=== PATIENT | male | born 1980 | race Caucasian/White ===

== ENCOUNTER → 2019-07-26 | Outpatient (CLI) | payer OTHER, BC ==
[~2019-07-26] MED LIST: ALBU90OI INH; Alph-E-Mixed400 UNIT PO; IBUP400 PO; LOSA50 PO; PHILLIPS' COLO1 EACH PO; Vitamin D400 UNI1 PO
== END | disposition home or self-care (01) ==
LOC: LAB SHORT 11:09 → PLD 11:09
DX: D22.39 Melanocytic nevi of other parts of face (principal)
CPT/HCPCS: 88305

== ENCOUNTER 2020-07-07 08:32 | Day surgery (SDC) | payer OTHER, BC ==
[~2020-07-07] VITALS: Ht 180.3 cm; Wt 121.4 kg
[~2020-07-07 08:32] MED LIST changes: +IMODIUM A-D2 M1
--- NOTE | 2020-07-07 08:59 | NUR ---
07/07/20 0859 Consuelo Strong 1ST I.V. ATTEMPT IN RIGHT HAND 2ND I.V. ATTEMPT IN RIGHT FOREARM
== END 2020-07-07 10:39 | disposition home or self-care (01) ==
LOC: ORSCSDS 08:32
PROVIDERS: Internal Medicine Gastroenterology
PROC: 0DBE8ZX Excision of Large Intestine, Via Natural or Artificial Opening Endoscopic, Diagnostic (ICD-10-PCS; principal; 2020-07-07 09:45)
PROC: 0DBN8ZX Excision of Sigmoid Colon, Via Natural or Artificial Opening Endoscopic, Diagnostic (ICD-10-PCS; principal; 2020-07-07 09:45)
DX: Z12.11 Encounter for screening for malignant neoplasm of colon (principal); Z86.010 Personal history of colon polyps; R19.7 Diarrhea, unspecified; Z80.0 Family history of malignant neoplasm of digestive organs; D12.5 Benign neoplasm of sigmoid colon; I10 Essential (primary) hypertension; E78.5 Hyperlipidemia, unspecified; Z79.899 Other long term (current) drug therapy
CPT/HCPCS: 88305; J2704; J7120

== ENCOUNTER → 2024-02-06 | Outpatient (CLI) | payer OTHER ==
[2024-02-09 09:40] LABS: CORTISOL,URINE FREE - PER 24H 102.2 ug/d (<=60.0); CREATININE,URINE - PER 24H 2755 mg/d (1000-2500); CREATININE,URINE - PER VOLUME 145 mg/dL; HOURS COLLECTED 24 hr; TOTAL VOLUME 1900 mL
== END ==
LOC: LAB SHORT 06:43 → LAB 06:43
PROVIDERS: Internal Medicine Endocrinology, Diabetes & Metabolism
DX: E27.8 Other specified disorders of adrenal gland (principal); E66.01 Morbid (severe) obesity due to excess calories; K75.81 Nonalcoholic steatohepatitis (NASH)
CPT/HCPCS: 81050; 82530

== ENCOUNTER → 2024-02-11 | Outpatient (CLI) | payer OTHER | LOC: LAB SHORT 12:30 → LAB 12:30 | DX: R09.81 Nasal congestion (principal) | CPT/HCPCS: 87081 ==

== ENCOUNTER 2024-08-07 06:32 | Day surgery (SDC) | payer OTHER ==
[~2024-08-07] VITALS: Ht 180.3 cm; Wt 128.9 kg
[2024-08-07] MEDS ORDERED: ATOR10 (06:51)
[2024-08-07] MEDS ORDERED: LACTOBACILLUS (06:52)
[2024-08-07] MEDS ORDERED: DIOVAN HCT 1601 EAC1 (06:56)
[2024-08-07] MEDS ORDERED: Lactated Ringer's 1,000 ML IV ONE ×2 (07:20→07:47)
[2024-08-07] MEDS ORDERED: propofoL 50 ML IV ONE (07:28)
[2024-08-07] MEDS ORDERED: Midazolam HCL 1 MG/ML 5MLVIAL ONE (07:28)
[2024-08-07 09:07] VITALS: BP 116/63
--- NOTE | 2024-08-07 09:07 | NUR ---
08/07/24 0907 Jessenia Hernandez Pt. verbalizes feeling a little lightheaded when moving around but steady on his feet.
== END 2024-08-07 08:55 | disposition home or self-care (01) ==
LOC: ORSCSDS 06:32
PROVIDERS: Internal Medicine Gastroenterology
PROC: 0DBH8ZX Excision of Cecum, Via Natural or Artificial Opening Endoscopic, Diagnostic (ICD-10-PCS; principal; 2024-08-07 08:00)
DX: Z12.11 Encounter for screening for malignant neoplasm of colon (principal); Z86.0100 Personal history of colon polyps, unspecified; Z80.0 Family history of malignant neoplasm of digestive organs; Z86.0102 Personal history of hyperplastic colon polyps; D12.0 Benign neoplasm of cecum; D37.4 Neoplasm of uncertain behavior of colon; I10 Essential (primary) hypertension; J45.909 Unspecified asthma, uncomplicated; E66.9 Obesity, unspecified; Z68.39 Body mass index [BMI] 39.0-39.9, adult; Z79.899 Other long term (current) drug therapy
CPT/HCPCS: 88305; J2250; J2704; J7120

== ENCOUNTER → 2024-12-20 | Outpatient (CLI) | payer OTHER ==
[~2024-12-20] MED LIST changes: +ATOR10; +DIOVAN HCT 1601 EAC1; +LACTOBACILLUS
[2024-12-20 08:52] LABS: BASOPHILS ABSOLUTE AUTO 0.03 K/mm3 (0.00-0.23); BASOPHILS PERCENT AUTO 0 % (0-2); EOSINOPHILS ABSOLUTE AUTO 0.07 K/mm3 (0.00-0.68); EOSINOPHILS PERCENT AUTO 1 % (0-6); Hematocrit 43.7 % (37.0-53.0); Hemoglobin 15.5 g/dL (13.5-17.5); IMMATURE GRAN ABSOLUTE AUTO 0.02 K/mm3 (0.00-0.10); IMMATURE GRAN PERCENT AUTO 0 % (0-1); LYMPHOCYTES ABSOLUTE AUTO 2.23 K/mm3 (0.84-5.20); LYMPHOCYTES PERCENT AUTO 28 % (21-46); MONOCYTES ABSOLUTE AUTO 0.57 K/mm3 (0.16-1.47); MONOCYTES PERCENT AUTO 7 % (4-13); Mean Corpuscular HGB 30.8 pg (26.0-34.0); Mean Corpuscular HGB Conc 35.5 g/dL (31.5-36.5); Mean Corpuscular Volume 87 fL (80-100); Mean Platelet Volume 11.3 fL (9.1-12.4); NEUTROPHILS ABSOLUTE AUTO 5.17 K/mm3 (1.96-9.15); NEUTROPHILS PERCENT AUTO 64 % (41-73); Platelet Count 246 K/mm3 (150-400); RDW Standard Deviation 40.9 fL (35.1-46.3); Red Blood Cell Count 5.03 M/mm3 (4.30-5.90); White Blood Cell Count 8.09 K/mm3 (4.00-11.30)
[2024-12-20 09:11] LABS: Alanine Aminotransfer (ALT/SGP 42 U/L (12-78); Albumin, Blood 4.4 g/dL (3.4-5.0); Albumin/Globulin Ratio 1.3 (0.8-1.8); Alk Phos 107 U/L (50-136); Anion Gap 11 mmol/L (3-11); Aspartate Aminotrans (AST/SGOT 23 U/L (12-37); Bilirubin, Total 0.8 mg/dL (0.1-1.0); Blood Urea Nitrogen 11 mg/dL (8-24); CO2, Blood 26 mmol/L (21-32); Calcium, Blood 9.2 mg/dL (8.5-10.1); Chloride, Blood 107 mmol/L (98-108); Cholesterol 163 mg/dL (50-200); Creatinine, Blood 0.78 mg/dL (0.60-1.20); Globulin, Blood 3.4 g/dL (2.2-4.0); Glomerular Filtration Rate 113 (60-); Glucose, Blood 93 mg/dL (70-99); HDL Cholesterol 55 mg/dL (>39); LDL/HDL RATIO 1.3; Low Density Lipoprotein Chol 73 mg/dL (0-110); Potassium, Blood 3.8 mmol/L (3.5-5.5); Prostate Specific Antigen 0.375 ng/mL (0.000-4.000); Sodium, Blood 140 mmol/L (136-145); Total Protein, Blood 7.8 g/dL (6.4-8.2); Triglycerides 173 mg/dL (30-160); Very Low Density Lipoprot Chol 34 mg/dL (6-32)
== END ==
LOC: LAB 07:53 → LAB SHORT 07:53
PROVIDERS: Student in an Organized Health Care Education/Training Program
DX: I10 Essential (primary) hypertension (principal); E78.5 Hyperlipidemia, unspecified; K75.81 Nonalcoholic steatohepatitis (NASH); Z12.5 Encounter for screening for malignant neoplasm of prostate; Z13.1 Encounter for screening for diabetes mellitus
CPT/HCPCS: 80053; 80061; 83036; 85025; G0103

== ENCOUNTER → 2025-04-01 | Outpatient (CLI) | payer OTHER | END | disposition home or self-care (01) | LOC: LAB 05:09 → LAB SHORT 05:09 | DX: E27.8 Other specified disorders of adrenal gland (principal) | CPT/HCPCS: 81050 ==

== ENCOUNTER 2025-05-16 09:40 | Day surgery (SDC) | payer OTHER ==
[~2025-05-16] VITALS: Ht 180.3 cm; Wt 130.0 kg
[2025-05-16] MEDS ORDERED: Lidocaine HCl 4% 5 ML SDA ONE (10:47)
[2025-05-16 11:27] VITALS: BP 154/89
== END 2025-05-16 11:33 | disposition home or self-care (01) ==
LOC: ORSCSDS 09:40
PROVIDERS: Internal Medicine Gastroenterology
PROC: 0DJ08ZZ Inspection of Upper Intestinal Tract, Via Natural or Artificial Opening Endoscopic (ICD-10-PCS; principal; 2025-05-16 11:00)
DX: R10.13 Epigastric pain (principal); R10.11 Right upper quadrant pain; K76.89 Other specified diseases of liver; I10 Essential (primary) hypertension; E78.5 Hyperlipidemia, unspecified; J45.909 Unspecified asthma, uncomplicated; G47.33 Obstructive sleep apnea (adult) (pediatric); E66.01 Morbid (severe) obesity due to excess calories; Z68.41 Body mass index [BMI] 40.0-44.9, adult; Z79.899 Other long term (current) drug therapy
CPT/HCPCS: J2003; J2704; J7120

== ENCOUNTER 2025-06-18 10:03 | Day surgery (SDC) | payer OTHER ==
[2025-06-18] VITALS (10 sets, daily range): BP systolic 125–158; BP diastolic 77–103
[~2025-06-18] VITALS: Ht 180.3 cm; Wt 131.6 kg
[~2025-06-18 10:03] MED LIST changes: -ATOR10; +ATOR10 PO; +CULTURELLE KID1 EA13 PO; +CefOXitin Sodium 2,000 MG in NS 100 ML IV SCH; +Diovan160 MG PO; +ERGO50000 PO; +MULTI-VITAMIN1 EAC2 PO; +VITAMIN E100 UNI1 PO
[2025-06-18] MEDS ORDERED: Bupivacaine 0.5% W/EPI 1:200000 SDV 30 ML Vial ONE (10:18)
[2025-06-18] MEDS ORDERED: CefOXitin Sodium 2,000 MG in NS 100 ML IV SCH (10:20)
--- NOTE | 2025-06-18 10:20 | NUR ---
AMBULATORY INTO [facility]. PT WAS TOLD THAT HIS ARRIVAL TIME WAS 1000 AND PROCEDURE TIME WAS 1130. HISTORY AND ALLERGIES REVIEWED. LUNGS CLEAR. PT WEARS CPAP FAITHFULLY AT HOME. SATS>90% ON RA. BP 150'S/100'S. NPO STATUS CONFIRMED. PT MOTHER PAVEL IS HIS RIDE HOME TODAY. PT CLOTHING IN BELONGINGS BAG BELOW THE GURNEY.
[2025-06-18] MEDS ORDERED: FentaNYL Citrate 50 MCG/ML 2 ML Injection ONE (10:38)
[2025-06-18] MEDS ORDERED: Rocuronium Bromide 10 MG/ML 5ML Injection IV ONE (10:44)
[2025-06-18] MEDS ORDERED: Dexamethasone Sod Phos 10 MG/ML 1ML VIAL ONE (10:54)
[2025-06-18] MEDS ORDERED: Ondansetron HCl 2 MG / ML 2ML Vial ONE (10:54)
[2025-06-18] MEDS ORDERED: ePHEDrine Sulfate 50 MG/ML 1ML Injection ONE (10:58)
[2025-06-18] MEDS ORDERED: FentaNYL Citrate 50 MCG/ML 2 ML Injection IV PRN ×2 (11:10)
[2025-06-18] MEDS ORDERED: HYDROmorphone HCl/Pf 1MG SYR IV PRN ×2 (11:10)
[2025-06-18] MEDS ORDERED: Albuterol 2.5 MG/3 ML VIAL INH PRN (11:15)
[2025-06-18] MEDS ORDERED: Metoclopramide HCl 5MG / ML 2ML Vial IV PRN (11:15)
[2025-06-18] MEDS ORDERED: Phenylephrine HCl 100 MCG/ML-NS 10MLSYR (1MG/10ML) ONE (11:19)
[2025-06-18] MEDS ORDERED: OxyCODONE 5 mg/Acetamin 325 mg TABLET PO PRN (12:00)
--- NOTE | 2025-06-18 12:14 | NUR ---
Report received from Shameka SILVER. VSS. Pt on RA. Pt A&OX4. Pt able to reposition self in bed. Pt requesting PO food and fluids and rolando them well. Pt rep 01/29 aching pain to abd. Will medicate per Dr Dowling orders. Pt denies nausea or other discomforts. Pt has 4 surg sites to abd covered w/ Dermabond that are CDI.
[2025-06-18] MEDS ORDERED: Ondansetron HCl 2 MG / ML 2ML Vial IV ONE (13:10)
== END 2025-06-18 22:52 | disposition home or self-care (01) ==
LOC: ORSCMMR 10:03 → ORD 11:30 → ORSCMMR 22:52
PROVIDERS: Surgery
PROC: 8E0W4CZ Robotic Assisted Procedure of Trunk Region, Percutaneous Endoscopic Approach (ICD-10-PCS; principal; 2025-06-18 10:30)
PROC: 3E0T3BZ Introduction of Anesthetic Agent into Peripheral Nerves and Plexi, Percutaneous Approach (ICD-10-PCS; principal; 2025-06-18 10:30)
PROC: 0FT44ZZ Resection of Gallbladder, Percutaneous Endoscopic Approach (ICD-10-PCS; principal; 2025-06-18 10:30)
DX: K80.10 Calculus of gallbladder with chronic cholecystitis without obstruction (principal); I10 Essential (primary) hypertension; E78.5 Hyperlipidemia, unspecified; J45.909 Unspecified asthma, uncomplicated; E66.01 Morbid (severe) obesity due to excess calories; Z68.41 Body mass index [BMI] 40.0-44.9, adult; Z79.899 Other long term (current) drug therapy
CPT/HCPCS: 88304; A9270; J0694; J1100; J2371; J2405; J2704; J2765; J3010; J7120